=== PATIENT | female | born 1950 | race Caucasian/White ===

== ENCOUNTER → 2017-01-08 | Day surgery (SDC) | payer OTHER ==
[~2017-01-08] MED LIST: ARIM1TAB PO; BUPIVACAINE HCL PF 0.75% 30 ML VIAL ONE; CARB200T14 PO; CEPH500C3 PO; EPINEPHrine HCL (1:1000) 30 MG/30 ML VIAL ONE; FURO20TA PO; LACTATED RINGER'S 1000 ML INJ 1,000 ML ONE; LATA0.00 EACH EYE; LEVO175T19 PO; LIDOCAINE 1.5%/EPINEPHrine 1:200,000 PF SOLN 30 ML AMP ONE; MIDAZOLAM HCL 5 MG/ML VIAL (1 ML) ONE; POTA10TA2 PO; PROPOFOL 200 MG/20 ML AMP IV ONE; SPIR25TA PO; TEMA30CA PO; ULTR50TA PO; ceFAZolin 2 GM PREMIX 50 ML ONE
--- NOTE | 2017-01-10 08:49 | MP ---
cc: MAJO ZAMORA DATE OF SURGERY: 01/08/2017 PREOPERATIVE DIAGNOSIS Left shoulder rotator cuff tear. Left shoulder impingement syndrome. Left shoulder labral tear. POSTOPERATIVE DIAGNOSIS Left shoulder rotator cuff tear. Left shoulder impingement syndrome. Left shoulder labral tear. PROCEDURE Left shoulder arthroscopic rotator cuff repair. Left shoulder arthroscopic subacromial decompression. Left shoulder arthroscopic extensive debridement of labral SLAP tear. SURGEON Dr. Majo Zamora TIMERS INSPECTOR Majo Vaz PA-C ANESTHESIA General with interscalene block. ESTIMATED BLOOD LOSS Less than 10 cc. COMPLICATIONS None. IMPLANTS USED Arthrex. JUSTIFICATION This patient is a 66-year female who injured her left shoulder. She had persistent pain and weakness in regards to her condition and failed conservative treatment. Clinical exam as well as MRI confirmed the above-named findings. The patient was counseled as to the risks, benefits and alternatives of the above-named proposed surgical procedure. She did wish to proceed with surgery. PROCEDURE Written consent was obtained. The patient was identified by name, taken to the operating room and placed supine on the operating table. General anesthesia was administered as well as two grams of IV Ancef. She did receive a preoperative interscalene block. The patient was carefully turned to a right lateral decubitus position. A lateral arm roll was placed. All bony prominences and pressure points were well-padded. The neck was carefully monitored and kept neutral. An arthroscopic arm ragland was gently applied to the left upper extremity. 10 pounds of traction were placed. The left shoulder was prepped and draped in the usual fashion using isopropyl alcohol, Hibiclens solution and DuraPrep solution. After a timeout was formed, a standard posterior and anterior glenohumeral arthroscopic portal was established. The glenohumeral joint revealed evidence of labral tearing along the anterior, superior and posterior portions. Minimal grade II chondromalacia noted. The biceps origin was intact. An arthroscopic shaver was introduced from the anterior portal. Extensive debridement of the labrum was performed from the anterior 3 o'clock position up to the superior 12 o'clock position and back down to the posterior 9 o'clock position. There was evidence of full-thickness tearing along the anterior portion of the supraspinatus tendon as visualized from the glenohumeral joint. There was also debrided. Attention was turned to the subacromial space where there was evidence of significant impingement with bursitis. A subacromial decompression was performed. The shaver was used to perform an extensive bursectomy. The arthroscopic bur was used to perform an acromioplasty and the cautery device was used to release the coracoacromial ligament. The bur was used to decorticate the greater tuberosity in preparation for rotator cuff tear repair. An Arthrex Scorpion device was used to shuttle #2 FiberTape suture through the anterior and posterior portions of the torn tendon in a horizontal mattress pattern. A #2 FiberLink suture was placed along the posterior portions. The sutures were then placed through the eyelet of an Arthrex 4.75 mm Bio-SwiveLock anchor. The sutures were tensioned and the anchor was inserted into the greater tuberosity for rotator cuff tendon repair. The repair was probed and noted good stability and fixation. At the conclusion of the surgical procedure the arthroscopic portals were closed with 3-0 Prolene suture and sterile dressings applied. The patient was placed in sling and swathe immobilizer. She tolerated the procedure well with no intraoperative complication noted. Majo Vaz, physician workforce development assistant certified, was present during the entire procedure to include patient positioning and the procedure itself. The medical necessity of a physician workforce development assistant was indicated in this case due to the complexity of the procedure. He assisted with appropriate manipulation of the arm and also manipulation of the camera. He assisted with shuttling of sutures and also implantation of suture anchor for purposes of rotator cuff tendon repair. MD KAIDEN Lemos/KAY /2:32 PM /8:26 AM
== END | disposition home or self-care (01) ==
LOC: ESDC 11:08
PROVIDERS: ATTEND Orthopaedic Surgery Sports Medicine
DX: M75.122 Complete rotator cuff tear or rupture of left shoulder, not specified as traumatic (principal); M75.42 Impingement syndrome of left shoulder; S43.432A Superior glenoid labrum lesion of left shoulder, initial encounter
CPT/HCPCS: 01630; 01991; 29823; 29826; 29827; 64417; C1713; J0171; J0690; J2250; J7120